=== PATIENT | female | born 1990 | race Caucasian/White ===

== ENCOUNTER 2023-10-16 13:33 | Emergency (ER) | payer MEDICAID ==
[~2023-10-16] VITALS: Ht 177.8 cm; Wt 84.4 kg
[2023-10-16 13:45] VITALS: BP_SYST 121; PULSE 72; RESP 18; TEMP 97.2; O2SAT 98
[2023-10-16] MEDS: DIPHTH,PERTUSS(ACELL),TET VAC 0.5 ML VIAL (Tdap) I.M. ONE (14:23)
[2023-10-16] MEDS: LIDOCAINE 1% 10 MG/ML, 20 ML MDV INJ ONE (14:36)
[2023-10-16] MEDS: BACITRACIN 1 GM OINT TP ONE (14:36)
[2023-10-16] MEDS ORDERED: IBUP-1969 PO (15:14)
== END 2023-10-16 15:31 | disposition home or self-care (01) ==
LOC: SED 13:33
DX: L72.8 Other follicular cysts of the skin and subcutaneous tissue (principal); R22.42 Localized swelling, mass and lump, left lower limb; Z23 Encounter for immunization
CPT/HCPCS: 90715; 99284; J2001

== ENCOUNTER 2023-12-17 17:46 | Emergency (ER) | payer MEDICAID ==
[~2023-12-17] VITALS: Ht 175.3 cm; Wt 83.9 kg
[~2023-12-17 17:46] MED LIST: IBUP-1969 PO
[2023-12-17 17:50] VITALS: BP_SYST 127; PULSE 80; RESP 16; TEMP 98.1; O2SAT 99
[2023-12-17] MEDS ORDERED: IBUP-1969 PO (19:04)
[2023-12-17 19:10] VITALS: BP_SYST 127; PULSE 80; RESP 16; TEMP 98.1; O2SAT 99
== END 2023-12-17 19:10 | disposition home or self-care (01) ==
LOC: SED 17:46
DX: M06.862 Other specified rheumatoid arthritis, left knee (principal); M06.861 Other specified rheumatoid arthritis, right knee; Z76.0 Encounter for issue of repeat prescription; Z79.899 Other long term (current) drug therapy
CPT/HCPCS: 99281